=== PATIENT | female | born 1960 | race Caucasian/White ===

== ENCOUNTER 2016-10-21 09:22 | Day surgery (SDC) | payer BC ==
[~2016-10-21 09:22] MED LIST: Acetaminophen TAB* 325 MG PO PRN; Buffered Lidocaine 0.9% SYRIN* 5 ML/SYR SYRINGE INTRADERM ONE; Buffered Lidocaine 0.9% SYRIN* 5 ML/SYR SYRINGE ONE; Cyclopentolate 1% OPTH.SOL* 2 ML BTL ONE; Flurbiprofen 0.03% OPTH.SOL* 2.5 ML BTL ONE; Lidocaine 1% MPF wEPI 200,000* 30 ML SDV ONE; Lidocaine 1% MPF* 2 ML VIAL ONE; Neomycin/Polymy/Dex OPTH.SUSP* MAXITROL 0.1% 5 ML ONE; Phenylephrine 2.5% OPTH.SOL* 2 ML BTL ONE; Povidone Iodine 5% OPTH* 30 ML BTL ONE; Proparacaine 0.5% OPHTH.SOL* 15 ML BTL ONE; acetaZOLAMIDE TAB* 250 MG ONE
[2016-10-21] MEDS ORDERED: Midazolam* 1 MG/ML 2 ML VIAL (2 MG) ONE ×2 (11:36→12:02)
[2016-10-21 12:25] VITALS: BP 127/72
--- NOTE | 2016-10-21 12:37 | OP ---
DATE OF OPERATION: 10/21/2016 - [facility] DATE OF : 1960. SURGEON: Rahul Kowalski M.D. PREOPERATIVE DIAGNOSIS: Cataract left eye. POSTOPERATIVE DIAGNOSIS: Cataract left eye. OPERATIVE PROCEDURE: Phacoemulsification left eye with IOL. DESCRIPTION OF PROCEDURE: The patient was brought to the operating room after being given 1/2% Alcaine with epinephrine drops in the preoperative area. The eye was prepped and draped in the usual sterile fashion. Sterile drape and eyelid speculum were placed. Again, topical 1/2% Alcaine with epinephrine was given. A paracentesis incision was made at the 3 o'clock position with the No.75 blade. Clear cornea incision 2.2 x 2.2-mm was created at the 6 o'clock position starting at the anterior limbus using the 2.2-mm keratome. The anterior chamber was irrigated with 0.4 mL of 1% non-preservative intracameral lidocaine and filled with DisCoVisc. A capsulorrhexis was completed using the cystotome and the Utrata forceps. Hydrodissection was performed with balanced salt solution. The lens nucleus was removed with the Phacoemulsification handpiece without incident. Cortex was removed with the irrigation-aspiration handpiece. The capsular bag was re-inflated using DisCoVisc and an [id number] 24.5 implant was inserted with the shooter. The irrigation-aspiration handpiece was used to remove all residual DisCoVisc. The eye was refilled with balanced salt solution and the wound checked and found to be watertight. Topical Maxitrol drops were given. [id number]/[facility] #: [id number] [facility]
== END 2016-10-21 12:34 | disposition home or self-care (01) ==
LOC: OREAST 09:22
PROVIDERS: ATTEND Specialist
DX: H25.813 Combined forms of age-related cataract, bilateral (principal); Z79.899 Other long term (current) drug therapy; M06.9 Rheumatoid arthritis, unspecified; H18.51 Endothelial corneal dystrophy
CPT/HCPCS: A9270-GY; J2001; J2250; V2632

== ENCOUNTER 2016-10-28 10:32 | Day surgery (SDC) | payer BC ==
[~2016-10-28 10:32] MED LIST changes: -Buffered Lidocaine 0.9% SYRIN* 5 ML/SYR SYRINGE ONE; -Cyclopentolate 1% OPTH.SOL* 2 ML BTL ONE; -Flurbiprofen 0.03% OPTH.SOL* 2.5 ML BTL ONE; -Lidocaine 1% MPF wEPI 200,000* 30 ML SDV ONE; -Lidocaine 1% MPF* 2 ML VIAL ONE; -Neomycin/Polymy/Dex OPTH.SUSP* MAXITROL 0.1% 5 ML ONE; -Phenylephrine 2.5% OPTH.SOL* 2 ML BTL ONE; -Povidone Iodine 5% OPTH* 30 ML BTL ONE; -Proparacaine 0.5% OPHTH.SOL* 15 ML BTL ONE; -acetaZOLAMIDE TAB* 250 MG ONE
[2016-10-28] MEDS ORDERED: Midazolam* 1 MG/ML 2 ML VIAL (2 MG) ONE (13:16)
[2016-10-28] MEDS ORDERED: Buffered Lidocaine 0.9% SYRIN* 5 ML/SYR SYRINGE ONE (13:33)
[2016-10-28] MEDS ORDERED: Cyclopentolate 1% OPTH.SOL* 2 ML BTL ONE (13:33)
[2016-10-28] MEDS ORDERED: acetaZOLAMIDE TAB* 250 MG ONE (13:33)
[2016-10-28] MEDS ORDERED: Lidocaine 1% MPF* 2 ML VIAL ONE (13:33)
[2016-10-28] MEDS ORDERED: Phenylephrine 2.5% OPTH.SOL* 2 ML BTL ONE (13:33)
[2016-10-28] MEDS ORDERED: Proparacaine 0.5% OPHTH.SOL* 15 ML BTL ONE (13:33)
[2016-10-28] MEDS ORDERED: Flurbiprofen 0.03% OPTH.SOL* 2.5 ML BTL ONE (13:33)
[2016-10-28] MEDS ORDERED: Lidocaine 2% EPI 1:200000 MPF* 20 ML VIAL ONE (13:33)
[2016-10-28] MEDS ORDERED: Povidone Iodine 5% OPTH* 30 ML BTL ONE (13:33)
[2016-10-28] MEDS ORDERED: Neomycin/Polymy/Dex OPTH.SUSP* MAXITROL 0.1% 5 ML ONE (13:33)
[2016-10-28 14:05] VITALS: BP 115/59
--- NOTE | 2016-10-29 02:28 | OP ---
DATE OF OPERATION: 10/28/16 - MERGED WITH [facility] DATE OF : [birth year] SURGEON: Rahul Kowalski M.D. PREOPERATIVE DIAGNOSIS: Cataract, right eye. POSTOPERATIVE DIAGNOSIS: Cataract, right eye. OPERATIVE PROCEDURE: Phacoemulsification, right eye with IOL. DESCRIPTION OF PROCEDURE: The patient was brought to the operating room after being given 1/2% Alcaine with epinephrine drops in the preoperative area. The eye was prepped and draped in the usual sterile fashion. Sterile drape and eyelid speculum were placed. Again, topical 1/2% Alcaine with epinephrine was given. A paracentesis incision was made at the 9 o'clock position with the No.75 blade. Clear cornea incision 2.2 x 2.2-mm was created at the 12 o'clock position starting at the anterior limbus using the 2.2-mm keratome. The anterior chamber was irrigated with 0.4 mL of 1% non-preservative intracameral lidocaine and filled with DisCoVisc. A capsulorrhexis was completed using the cystotome and the Utrata forceps. Hydrodissection was performed with balanced salt solution. The lens nucleus was removed with the Phacoemulsification handpiece without incident. Cortex was removed with the irrigation-aspiration handpiece. The capsular bag was re-inflated using DisCoVisc and an [id number] implant was inserted with the shooter, oriented to the 76 degree meridian. Horizontal reference williamson made in the preoperative area with the patient in the seated position. The irrigation-aspiration handpiece was used to remove all residual DisCoVisc. The eye was refilled with balanced salt solution and the wound checked and found to be watertight. Topical Maxitrol drops were given. [id number]/[facility] #: [id number] MTDD
== END 2016-10-28 14:12 | disposition home or self-care (01) ==
LOC: OREAST 10:32
PROVIDERS: ATTEND Specialist
DX: H25.811 Combined forms of age-related cataract, right eye (principal); Z79.899 Other long term (current) drug therapy; M06.9 Rheumatoid arthritis, unspecified; H18.51 Endothelial corneal dystrophy
CPT/HCPCS: A9270-GY; J2250; V2787